=== PATIENT | female | born 1990 | race Caucasian/White ===

== ENCOUNTER 2017-02-15 10:48 | Emergency (ER) | payer OTHER, SELFPAY | END 2017-02-15 13:43 | disposition home or self-care (01) | PROVIDERS: Emergency Provider Nurse Practitioner Family; Visit Provider Nurse Practitioner Family | DX: S93.401A Sprain of unspecified ligament of right ankle, initial encounter (principal) | CPT/HCPCS: 29515; 73610; 73630; 99202 ==

== ENCOUNTER 2017-07-09 07:00 | Outpatient (RCR) | payer OTHER, SELFPAY | END 2017-08-08 09:19 | disposition home or self-care (01) | LOC: OT 07:00 | PROVIDERS: PCP Nurse Practitioner Family; Visit Provider Orthopaedic Surgery Adult Reconstructive Orthopaedic Surgery | DX: M65.879 Other synovitis and tenosynovitis, unspecified ankle and foot (principal) | CPT/HCPCS: 97033; 97110; 97165 ==

== ENCOUNTER → 2021-11-24 19:22 | Outpatient (CLI) | payer OTHER, SELFPAY ==
[2021-11-24 19:49] LABS: Basophils # 0.1 K/mm3 (0-0.2); Basophils % 1.4 % (0.1-2.0); Eosinophils # 0.3 K/mm3 (0.0-0.4); Eosinophils % 3.5 % (0.1-12.0); Hematocrit 46.6 % (37.0-47.0); Hemoglobin 15.3 g/dL (12.2-16.2); Lymphocytes # 1.5 K/mm3 (0.7-4.5); Lymphocytes % 20.3 % (10-50); Mean Corpuscular HGB Conc 32.8 g/dL (31.8-35.4); Mean Corpuscular Hemoglobin 27.9 pg (27.0-31.2); Mean Corpuscular Volume 84.9 fl (81-99); Mean Platelet Volume 9.4 fl (7.4-10.4); Monocytes # 0.5 K/mm3 (0.1-1.0); Monocytes % 6.6 % (1.7-9.3); Neutrophils % 68.1 % (37.0-80.0); Platelet Count 288 K/mm3 (142-424); Red Cell Distribution Width 14.7 % (11.5-17.5); White Blood Count 7.3 K/mm3 (4.8-10.8)
[2021-11-24 19:54] LABS: Alanine Aminotransferase 23 U/L (12-78); Albumin Level 4.3 g/dl (3.5-5.0); Albumin/Globulin Ratio 1.3 (1.1-1.8); Alkaline Phosphatase 73 U/L (38-126); Aspartate Amino Transferase 28 U/L (14-36); Blood Urea Nitrogen 16 mg/dl (7-17); Calcium 8.9 mg/dl (8.4-10.2); Carbon Dioxide 22 mmol/L (22.0-30.0); Chloride 104 mmol/L (98-107); Estimated Glomerular Filt Rate 72 ml/min (>60); GFR (African American) 87 ML/MIN (>60); Globulin 3.3 g/dL (1.3-3.2); Glucose 126 mg/dl (74-100); Sodium 139 mmol/L (136-145); Total Protein,Serum 7.6 g/dl (6.3-8.2)
[2021-11-24 19:55] LABS: Bilirubin,Total < 0.1 mg/dl (0.2-1.3)
[2021-11-24 20:45] LABS: Vitamin B12 737 pg/mL (239-931)
[2021-12-02 20:28] LABS: 1,25 Dihydroxy Vitamin D 38 pg/mL (.); 1,25-Dihydroxy, Vitamin D-2 <10 pg/mL (.); 1,25-Dihydroxy, Vitamin D-3 37 pg/mL (.)
== END ==
PROVIDERS: PCP Family Medicine; Visit Provider Nurse Practitioner Family
DX: R53.83 Other fatigue (principal); M85.89 Other specified disorders of bone density and structure, multiple sites
CPT/HCPCS: 80053; 82607; 82652; 84443; 85025

== ENCOUNTER → 2021-11-30 08:36 | Outpatient (CLI) | payer OTHER, SELFPAY ==
--- NOTE | 2021-11-30 08:37 | XR_ITS ---
FINAL REPORT TECHNIQUE: Bone densitometry calculations of the lumbar spine and left hip were obtained. CLINICAL HISTORY: osteopenia, multiple fractures FINDINGS: Using L1-4, the bone mineral density of the spine is 1.073 g/cm2, corresponding to T-score of 0.2. This may be falsely elevated secondary to hypertrophic change. Using the left hip, the bone mineral density of the femoral neck is 0.478 g/cm2, corresponding to a T-score of -3.3. Using the left hip, the bone mineral density of the femoral neck is 0.767 g/cm2, corresponding to a T-score of -0.7. NOTE: T-score: Standard deviation compared with peak bone mass of young adult mean. *Following the recommendations of the International Society of Bone Densitometry, classification of hip BMD is based on the lower of two T-scores; total hip or femoral neck. IMPRESSION: Osteoporosis: Lowest T-score is at or below -2.5. This patient's T-score meets the World Health Organization criteria for osteoporosis. FRAX score was not reported because some of the T-scores are at or below-2.5. Reviewed, Interpreted and Dictated by César Campos III, MD Transcribed by Talita Vo Authenticated and . [facility]
== END ==
PROVIDERS: PCP Nurse Practitioner Family; Visit Provider Nurse Practitioner Family
DX: M85.89 Other specified disorders of bone density and structure, multiple sites (principal)
CPT/HCPCS: 77080

== ENCOUNTER 2023-06-25 12:03 | Outpatient (CLI) | payer OTHER, SELFPAY ==
[2023-06-25 16:51] LABS: Basophils # 0.1 K/mm3 (0-0.2); Basophils % 0.6 % (0.1-2.0); Eosinophils # 0.2 K/mm3 (0.0-0.4); Eosinophils % 1.9 % (0.1-12.0); Hematocrit 42.6 % (37.0-47.0); Hemoglobin 13.3 g/dL (12.2-16.2); Lymphocytes # 1.4 K/mm3 (0.7-4.5); Lymphocytes % 16.1 % (10-50); Mean Corpuscular HGB Conc 31.1 g/dL (31.8-35.4); Mean Corpuscular Hemoglobin 28.4 pg (27.0-31.2); Mean Corpuscular Volume 91.2 fl (81-99); Mean Platelet Volume 9.8 fl (7.4-10.4); Monocytes # 0.6 K/mm3 (0.1-1.0); Monocytes % 7.1 % (1.7-9.3); Neutrophils # 6.2 K/mm3 (1.8-7.8); Neutrophils % 74.3 % (37.0-80.0); Platelet Count 379 K/mm3 (142-424); Red Blood Count 4.67 M/mm3 (4.20-5.40); Red Cell Distribution Width 15.3 % (11.5-17.5); White Blood Count 8.4 K/mm3 (4.8-10.8)
[2023-06-25 17:11] LABS: 25-OH Vitamin D, Total 19.3 ng/mL (30-100)
[2023-06-25 17:38] LABS: Iron 126 ug/dL (37-170)
[2023-06-25 17:39] LABS: Alanine Aminotransferase 24 U/L (12-78); Albumin Level 4.6 g/dl (3.5-5.0); Albumin/Globulin Ratio 1.4 (1.1-1.8); Alkaline Phosphatase 71 U/L (38-126); Anion Gap 13.4 mEq/L (5-15); Aspartate Amino Transferase 34 U/L (14-36); Bilirubin,Total 0.6 mg/dl (0.2-1.3); Blood Urea Nitrogen 16 mg/dl (7-17); Calcium 9.6 mg/dl (8.4-10.2); Carbon Dioxide 27 mmol/L (22.0-30.0); Chloride 104 mmol/L (98-107); Chol/HDL Ratio 2.1 (1-3.5); Cholesterol 223 mg/dl (140-200); Estimated Glomerular Filt Rate 96 ml/min (>60); GFR (African American) 116 ML/MIN (>60); Globulin 3.2 g/dL (1.3-3.2); Glucose 65 mg/dl (74-100); HDL Cholesterol 106 mg/dl (40-60); Potassium 5.4 mmoL/L (3.5-5.1); Sodium 139 mmol/L (136-145); Total Protein,Serum 7.8 g/dl (6.3-8.2); Triglycerides 125 mg/dl (30-150); VLDL Cholesterol 25 mg/dL (0-40)
[2023-06-25 17:40] LABS: Free T4 (Free Thyroxine) 0.93 ng/dl (0.78-2.19)
[2023-06-25 17:47] LABS: Total Iron Binding Capacity 393 ug/dL (265-497)
[2023-06-25 17:50] LABS: Direct LDL Cholesterol 106.22 mg/dL (100-129)
[2023-06-25 17:56] LABS: T4 (Thyroxine) 9.7 ug/dl (5.53-11.0); Triiodothryronine (T3) Uptake 28 % (23.5-40.5)
[2023-06-25 19:15] LABS: Thyroid Stimulating Hormone 1.22 uIU/mL (0.465-4.68)
[2023-06-25 19:34] LABS: Vitamin B12 594 pg/mL (239-931)
[2023-06-27 13:17] LABS: FSH 3.5 mIU/mL (.); LH 7.4 mIU/mL (.)
[2023-06-30 22:41] LABS: Estrogen 525 pg/mL (.)
== END 2023-06-25 23:59 | disposition home or self-care (01) ==
LOC: LAB.DROPOF 06-26 12:03
PROVIDERS: PCP Nurse Practitioner Family; Visit Provider Nurse Practitioner Family
DX: R53.83 Other fatigue (principal); E55.9 Vitamin D deficiency, unspecified; Z68.29 Body mass index [BMI] 29.0-29.9, adult
CPT/HCPCS: 80053; 80061; 82306; 82607; 82672; 83001; 83002; 83540; 83550; 84144; 84436; 84439; 84443; 84479; 85025